=== PATIENT | female | born 1990 | race Caucasian/White ===

== ENCOUNTER 2018-07-03 20:16 | Emergency (ER) | payer MEDICAID, OTHER ==
[~2018-07-03] VITALS: Ht 175.3 cm; Wt 71.4 kg
[2018-07-03 20:26] VITALS: Ht 175.3 cm; Wt 71.4 kg
[2018-07-04] MEDS ORDERED: PRED5DRO20 BOTH EYES (00:56)
[2018-07-04] MEDS ORDERED: ERYT1OIN6 BOTH EYES (00:56)
[2018-07-04 01:17] VITALS: BP 123/68; PULSE 60; RESP 18
--- NOTE | 2018-07-04 01:20 | ERD ---
ER Documentation Chief Complaint Chief Complaint right eye pain and swelling, slight redness, no trauma. HPI History of Present Illness: Patient coming in today with complaint of right eye pain, lower lid swelling, erythema, itching, matting. Denies trauma. Denies vision changes, dizziness. At home pharmacological/nonpharmacological treatment for symptoms: denies Denies social concerns; Denies recent foreign travel ROS All systems reviewed and are negative except as per history of present illness. Medications Home Meds Active Scripts Erythromycin Base (Erythromycin) 1 Gm Oint...g., 1 APPLIC BOTH EYES QID for eye infection for 7 Days Prov:PADMINI LEOS [employer] 07/04/18 Prednisolone Acetate* (Pred Forte*) 5 Ml Susp, 1 DROP BOTH EYES QID for eye infection for 4 Days, EA Prov:PADMINI LEOS [employer] 07/04/18 Allergies Allergies: Coded Allergies: No Known Allergy (Unverified , 07/04/18) PMhx/Soc Medical and Surgical Hx: pt denies Medical Hx, pt denies Surgical Hx Hx Alcohol Use: No Hx Substance Use: No Hx Tobacco Use: No Smoking Status: Never smoker FmHx Family History: No diabetes Physical Exam Vitals Vital Signs Date Temp Pulse Resp B/P (MAP) Pulse Ox O2 O2 Flow FiO2 Time Delivery Rate 07/03/18 98.4 84 18 130/67 97 20:26 (88) Physical Exam Const: No acute distress Head: Atraumatic Eyes: Erythematous conjunctiva, injected sclera, small amount of discharge to right eye; extraocular motions intact, no pain with movement ENT: Normal External Ears, Nose and Mouth. Neck: Full range of motion. No meningismus. Resp: Clear to auscultation bilaterally Cardio: Regular rate and rhythm, no murmurs Abd: Soft, non tender, non distended. Normal bowel sounds Skin: No petechiae or rashes Back: No midline or flank tenderness Ext: No cyanosis, or edema Neur: Awake and alert Psych: Normal Mood and Affect Procedures/MDM ED course includes a thorough examination and history. ED course includes visual acuity. Medications: -- Imaging: -- Labs: -- Low suspicion for life-threatening medical emergency. Low suspicion for infectious process requires immediate intervention/hospitalization or systemic infection. Low suspicion for ophthalmologic emergency that requires immediate intervention. Otherwise healthy patient presenting with constellation of symptoms likely representing uncomplicated conjunctivitis as characterized by history, physical exam findings. Patient afebrile, hemodynamically stable. No significant visual changes between eyes. No respiratory distress, otherwise relatively well appearing and nontoxic. Patient educated on diagnoses, prescriptions, follow-up care, return precautions. Strict return precautions given for worsening condition; questions answered discharge. Disposition for discharge with followup in 2 days with PCP/clinic. Departure Diagnosis: Primary Impression: Acute bacterial conjunctivitis Laterality: right Qualified Codes: H10.31 - Unspecified acute conjunctivitis, right eye Condition: Stable Patient Instructions: Conjunctivitis, Bacterial Referrals: [facility] Usted se lopez hecho un examen mdico de control que le indica que no est en jim condicin que requiera tratamiento urgente en el Departamento de Emergencia. Un estudio ms profundo y el tratamiento de almazan condicin pueden esperar sin ningn riesgo hasta que usted sea atendida/o en el consultorio de almazan mdico o jim clnica. Es responsabilidad suya arreglar jim jyothi para el seguimiento del noris. MANEJO DE CONDICIONES NO URGENTES EN EL FUTURO 1) Si usted tiene un mdico de atencin primaria: Usted debera llamar a almazan mdico de atencin primaria antes de venir al de partamento de emergencia. Despus de las horas de consultorio, almazan doctor o almazan asociado/a est disponible por telfono. El mdico o enfermero de rosemary en el servicio telefnico puede asesorarle por levon medio para atender el problema, o noris contrario se puede programar jim jyothi. 2) Si usted no tiene un mdico de atencin primaria: Llame al mdico o clnica de referencia que aparece abajo piter las horas de consultorio para hacer jim jyothi para que le vean. CLINICAS: [facility] 085 [phone] [address] [facility] 777 [phone] [address] [facility] [phone] [address] [facility] 363 [phone] [facility] [phone] [facility]. [phone] [address] [facility] [facility] () Usted se lopez hecho un examen mdico de control que le indica que no est en jim condicin que requiera tratamiento urgente en el Departamento de Emergencia. Un estudio ms profundo y el tratamiento de almazan condicin pueden esperar sin ningn riesgo hasta que usted sea atendida/o en el consultorio de almazan mdico o jim clnica. Es responsabilidad suya arreglar jim jyothi para el seguimiento del noris. MANEJO DE CONDICIONES NO URGENTES EN EL FUTURO 1) Si usted tiene un mdico de atencin primaria: Usted debera llamar a almazan mdico de atencin primaria antes de venir al de partamento de emergencia. Despus de las horas de consultorio, almazan doctor o almazan asociado/a est disponible por telfono. El mdico o enfermero de rosemary en el servicio telefnico puede asesorarle por levon medio para atender el problema, o noris contrario se puede programar jim jyothi. 2) Si usted no tiene un mdico de atencin primaria: Llame al mdico o condado institucions de referencia que aparece abajo piter las horas de consultorio para hacer jim jyothi para que le vean. SI USTED NO PUEDE PAGAR PARA CHANDRA UN MEDICO puede ir a: [facility] [address] [place] [address] [facility] [address] [place] [address] [facility] [address] [place] [address] [facility] [address] [place] [address] [facility] Hours: Mon - Fri 9:00 AM - 5:00 PM Additional Instructions: Muchas keith por permitirnos participar en almazan cuidado. Almazan shannon y seguridad es nuestra principal prioridad en [facility]. Es importante leer todas las instrucciones de yuri y la educacin que se proporcionan en almazan paquete de yuri. Llame a almazan mdico de atencin primaria MAANA para jim jyothi piter los prximos 2 a 4 campbell y traiga toda la informacin y los medicamentos recetados. Llene las recetas y siga exactamente las instrucciones de la etiqueta. El antibitico eritromicina debe colocarse en ambos ojos 4 veces al da piter 7 campbell; esto tratar la infeccin. El acetato de esteroide prednisolona debe colocarse en ambos ojos 4 veces al da piter 4 campbell; Tripp tratar la inflam acin de la infeccin. Si los sntomas empeoran y almazan proveedor no est disponible, regrese inmediatamente al Departamento de Emergencias. Regrese a la adrian de emergencias si tiene fiebre, nuseas, vmitos, escalofros, aumento del dolor en los ojos o hinchazn. ---- Thank you very much for allowing us to participate in your care. Your health and safety is our top priority at [facility]. It is important to read all discharge instructions and education provided in your discharge packet. Call your primary care doctor TOMORROW for an appointment during the next 2-4 days and bring all the information and medications prescribed. Have prescriptions filled and follow precisely the directions on the label. The antibiotic erythromycin is to be placed in both eyes 4 times a day for 7 days; this will treat infection. The steroid prednisolone acetate is to be placed in both eyes 4 times a day for 4 days; this will treat infection inflammation. If the symptoms get worse and your provider is unavailable, return to the Emergency Department immediately. Return to emergency room if you develop fever, nausea, vomiting, chills, increased eye pain or swelling. PADMINI LEOS NP Jul 04, 2018 01:20
== END 2018-07-04 01:19 | disposition home or self-care (01) ==
LOC: FTE 20:16
DX: H10.31 Unspecified acute conjunctivitis, right eye (principal)
CPT/HCPCS: 99283